=== PATIENT | male | born 1960 | race Caucasian/White ===

== ENCOUNTER 2021-04-10 14:30 | Outpatient (RCR) | payer OTHER ==
[~2021-04-10 14:30] MED LIST: AZOR; LEVOTHYROXIN0.075 MG PO; METFORMIN ER500 MG PO
== END 2021-06-09 | disposition home or self-care (01) ==
LOC: WSOH
DX: H93.13 Tinnitus, bilateral (principal); Z79.899 Other long term (current) drug therapy; I10 Essential (primary) hypertension; E11.9 Type 2 diabetes mellitus without complications; E03.9 Hypothyroidism, unspecified; Z98.84 Bariatric surgery status; Z98.890 Other specified postprocedural states; Z90.89 Acquired absence of other organs; Y99.0 Civilian activity done for income or pay